=== PATIENT | female | born 1995 | race Caucasian/White ===

== ENCOUNTER 2016-05-23 11:55 | Emergency (ER) | payer BC ==
[~2016-05-23] VITALS: Ht 172.7 cm; Wt 63.1 kg
[2016-05-23 11:59] VITALS: TEMP 37.2; Ht 172.7 cm; Wt 63.1 kg
[2016-05-23] MEDS ORDERED: VENL75TA4 PO (12:22)
[2016-05-23] MEDS ORDERED: BCPILLS PO (12:22)
[2016-05-23] MEDS ORDERED: VENL75CA PO (12:23)
--- NOTE | 2016-05-23 12:23 | DIAGNOSTIC IMAGING REPORT ---
LEFT ANKLE 3 VIEWS CLINICAL HISTORY: Left ankle pain and swelling. FINDINGS: 3 views of the left ankle are obtained. No prior studies are available for comparison at the time of dictation. The skeletal structures are well mineralized. No fracture is seen. There is a joint effusion. Mild soft tissue edema is present, greatest overlying the lateral malleolus. IMPRESSION: Soft tissue swelling and joint effusion. No fracture is identified. Electronically signed by: Jose Villalobos M.D. 05/23/2016 12:21 PM Dictated Date/Time: 05/23/2016 12:20 PM
--- NOTE | 2016-05-23 13:13 | EMERGENCY ROOM VISIT NOTE ---
ED Visit Note First contact with patient: 12:29 CHIEF COMPLAINT: Ankle pain HISTORY OF PRESENT ILLNESS: This 21-year-old female patient presents to the emergency department ambulatory after sustaining an injury to the left ankle and foot with a twisting, inversion motion last night. The patient states that she was running home in high heels when she inverted her ankle and fell. The patient complains of pain along the outside of the ankle. The patient denies pain of the foot. The patient rates the pain as sharp and a 7/10. The patient is not able to bear weight on the foot. Constant pain, worse with movement, weight bearing, and the dependent position. No knee pain, the patient is able to move their toes. No numbness or weakness of the foot, no laceration. The patient has not had a previous fracture to this ankle. The patient has taken no medications for the pain. The patient denies any other injury. REVIEW OF SYSTEMS: A 6 system review of systems was completed with positives and pertinent negatives listed in the HPI. ALLERGIES: No known drug allergies MEDICATIONS: Control pills, Effexor PMH: No significant past medical history. SOCIAL HISTORY: The patient is a [employer] student and lives with roommates. Nonsmoker, occasional alcohol use. PHYSICAL EXAM: Vital Signs: Reviewed Nurse's notes, vital signs stable. GENERAL : This is a 21-year-old female, no acute distress, but appears in pain, well- developed, well-nourished. MENTAL STATUS: Alert, oriented to person place and time, and cooperative. MUSCULOSKELETAL: The left ankle is swollen and tender over the lateral malleolus, but the skin is intact and there is no ligamentous instability. There is no fifth metatarsal tenderness. There is no tenderness over the rest of the foot. There is no calf or tibia/fibular tenderness. There is no visual deformity. The foot and toes are warm and well-perfused. Dorsalis pedis pulse 2+. Sensation to pain and light touch is intact. Capillary refill less than 2 seconds. RADIOGRAPHIC FINDINGS: LEFT ANKLE 3 VIEWS CLINICAL HISTORY: Left ankle pain and swelling. FINDINGS: 3 views of the left ankle are obtained. No prior studies are available for comparison at the time of dictation. The skeletal structures are well mineralized. No fracture is seen. There is a joint effusion. Mild soft tissue edema is present, greatest overlying the lateral malleolus. IMPRESSION: Soft tissue swelling and joint effusion. No fracture is identified. EMERGENCY DEPARTMENT COURSE: I examined the patient. X-rays of the left ankle were reviewed by myself and read by radiology and reveal no acute fractures. Gel ankle splint was applied to the ankle under my direction and the position was satisfactory. Neurovascular status was rechecked and intact. The patient was instructed on the use of crutches. She was given information for orthopedic follow-up if needed. The patient was discharged home in good condition. DIAGNOSIS: Left ankle sprain Current/Historical Medications Scheduled Control Pills ( Control Pills), 1 TAB PO DAILY Venlafaxine Hcl (Effexor Xr), 1 CAP PO DAILY Allergies Coded Allergies: No Known Allergies (Unverified , 05/23/16) Vital Signs Date Time Temp Pulse Resp B/P Pulse Ox O2 Delivery O2 Flow Rate FiO2 05/23/16 13:37 87 18 139/88 99 05/23/16 11:59 37.2 98 18 143/94 96 Room Air Departure Information Dispostion Home / Self-Care Condition GOOD Referrals No Doctor, Assigned (PCP) Patient Instructions [facility] Additional Instructions You have been treated in the Emergency Department for an Ankle sprain. For pain control, you can use the following [id number] medicines (if >12 yo): - Regular strength (325mg/tab) Tylenol (acetaminophen) 2 tabs every 4-6 hours as needed. Do not exceed 12 tablets in a 24 hour period. Avoid taking more than 4 grams (4000 mg) of Tylenol per day. This includes any other sources of acetaminophen you may take on a regular basis. - Regular strength (200 mg/tab) Advil (ibuprofen) 1-2 tabs every 4-6 hours as needed. Do not exceed a dose of 3200 mg per day. If this is a recent injury (<24 hrs), ice can be applied to the area of pain for the first 3 days to help decrease pain and inflammation. Keep the ankle brace/splint in place and use the crutches you have been provided to keep ALL weight off of the ankle until weight bearing is tolerable. Follow-up with orthopedics if you have continued pain in 6-7 days. Return to the Emergency Department if your current symptoms worsen despite treatment course outlined above, or if you develop any of the following symptoms : intractable pain despite aforementioned treatment course or new onset of numbness or tingling of the foot.
[2016-05-23 13:37] VITALS: BP 139/88; PULSE 87; O2SAT 99
== END 2016-05-23 13:39 | disposition home or self-care (01) ==
LOC: C.EDB 11:58 → C.EDD 13:39
DX: S93.402A Sprain of unspecified ligament of left ankle, initial encounter (principal); X50.1XXA Overexertion from prolonged static or awkward postures, initial encounter

== ENCOUNTER 2016-07-18 21:48 | Emergency (ER) | payer BC ==
[~2016-07-18] VITALS: Ht 175.3 cm; Wt 65.5 kg
[~2016-07-18 21:48] MED LIST: BCPILLS PO; VENL75CA PO
[2016-07-18 21:59] VITALS: TEMP 37; Ht 175.3 cm; Wt 65.5 kg
[2016-07-18] MEDS ORDERED: BISM262C6 PO (22:15)
[2016-07-18] MEDS ORDERED: IBUP-1050 PO (22:15)
[2016-07-18] MEDS ORDERED: TRMCR515 TOP (22:15)
[2016-07-18] MEDS ORDERED: PRED10TA PO (22:15)
[2016-07-18] MEDS ORDERED: FAMOTIDINE 20MG/102 ML D5W IV STA (22:21)
[2016-07-18] MEDS ORDERED: DiphenhydrAMINE HCL 50 MG/ML VIAL IV STA (22:21)
[2016-07-18] MEDS ORDERED: METHYLPREDNISOLONE 125 MG VIAL IV STA (22:21)
[2016-07-18 23:58] VITALS: BP 128/73; PULSE 72; O2SAT 100
--- NOTE | 2016-07-19 04:54 | EMERGENCY ROOM VISIT NOTE ---
History First contact with patient: 22:11 Chief Complaint: RASH Stated Complaint: HIVES History of Present Illness The patient is a 21 year old female who presents to the Emergency Room with complaints of full body rash over the next 1-2 days. She does not have a history of new medication or new foods. She does not have recent travel history. No new detergents or other known contact with allergens. The patient is usually healthy and is not having chest pain or shortness of breath. No abdominal pain, nausea, or vomiting. The patient considers herself usually healthy and did go to a local urgent care clinic. They gave her a topical cream and dose of steroids. This has not significantly improved her symptoms tonight. She has not had similar symptoms in the past and rates her discomfort a 2/10. Review of Systems More than 10 systems were reviewed and otherwise negative with the exception of history of present illness. Past Medical/Surgical History No chronic medical disease Family History No pertinent family history Social History Smoking Status: Never Smoker Occupation Status: [employer] student Current/Historical Medications Scheduled Control Pills ( Control Pills), 1 TAB PO DAILY Bismuth Subsalicylate (Pepto-Bismol), 2 TABS PO DIRECTED Ibuprofen (Advil), 200-600 MG PO Q4H Prednisone (Prednisone), 0 PO UD Triamcinolone Acet (Triamcinolone Acetonide), 1 APPLN TOP Q6 Venlafaxine Hcl (Effexor Xr), 1 CAP PO DAILY Allergies Coded Allergies: No Known Allergies (Unverified , 07/18/16) Physical Exam Vital Signs Date Time Temp Pulse Resp B/P Pulse Ox O2 Delivery O2 Flow Rate FiO2 07/18/16 23:58 72 18 128/73 100 Room Air 07/18/16 21:59 37.0 101 16 144/88 96 Room Air Physical Exam VITALS: Vitals are noted on the nurse's note and reviewed by myself. Vital signs stable. GENERAL: Well-developed, well-nourished, white female, who is in no acute distress and resting comfortably. Patient is cooperative with the examination. HEAD: Normocephalic atraumatic. EARS: External ear normal. External auditory canals clear, tympanic membranes pearly max without erythema or effusion bilaterally. EYES: Pupils equal round and reactive to light and accommodation. Conjunctivae without injection, sclerae without icterus. Extraocular movements intact. NOSE: Patent, turbinates without inflammation or discharge. MOUTH: Mucous membranes moist. Tonsils are not enlarged. Pharynx without erythema, blood, or exudate. Uvula midline. Airway patent. NECK: Supple without nuchal rigidity. No lymphadenopathy. No thyromegaly. Cervical spine is nontender. HEART: Regular rate and rhythm without murmurs gallops or rubs. LUNGS: Clear to auscultation bilaterally without wheezes, rales or rhonchi. No retractions or accessory muscle use. ABDOMEN: Positive normal bowel sounds x 4. Soft, nontender, without masses or organomegaly. No guarding or rebound tenderness. SKIN: The skin was with diffuse urticarial rash primarily of the abdomen and back Medical Decision & Procedures Medications Administered Medications (Trade) Dose Ordered Sig/Maryanne Route Start Time Stop Time Status Last Admin Dose Admin Diphenhydramine HCl (Benadryl Inj) 25 mg NOW STAT IV 07/18/16 22:21 07/18/16 22:23 DC 07/18/16 23:19 25 MG Methylprednisolone Sodium Succinate (Solu-Medrol IV) 125 mg NOW STAT IV 07/18/16 22:21 07/18/16 22:23 DC 07/18/16 23:19 125 MG Famotidine (Pepcid 20mg/100 ml) 20 mg ONE STAT IV 07/18/16 22:21 07/18/16 22:23 DC 07/18/16 23:19 20 MG ED Course Physical exam and history were performed. Nursing notes and EMR were reviewed. Patient appears to have a full body rash consistent with allergic reaction. The patient does not appear to anaphylaxis. IV access was established and the patient was provided IV Solu-Medrol, IV Benadryl, and IV Pepcid. The patient was reevaluated multiple times with course of her stay. Over the course of several hours she had significant improvement of her rash and was no longer pruritic or with significant lesions. The patient and I had a discussion regarding further options of care. She does appear stable and ready for discharge home. She does have a prescription for prednisone from urgent care that she may continue. She should follow with her primary care physician or [facility] with any ongoing or persistent symptoms. She was otherwise invited back to the ER with any new, worsening, or concerning symptoms. The chart was completed utilizing [employer] Speech Voice Recognition Software. Grammatical errors, random word insertions, pronoun errors, and incomplete sentences are an occasional consequence of this system due to software limitations, ambient noise, and hardware issues. Any formal questions or concerns about the content, text, or information contained within the body of this dictation should be directly addressed to the provider for clarification. . Medical Decision Differential diagnosis: Etiologies such as allergic reaction, anaphylaxis, urticaria, Wallace-Gregroio syndrome, toxic epidermal necrolysis, erythema multiforme, cellulitis, as well as others were entertained. Impression Primary Impression: Allergic reaction Departure Information Referrals No Doctor, Assigned (PCP) Patient Instructions [facility]
== END 2016-07-19 00:25 | disposition home or self-care (01) ==
LOC: C.EDB 21:51 → C.EDA 07-19 00:25
DX: T78.40XA Allergy, unspecified, initial encounter (principal); X58.XXXA Exposure to other specified factors, initial encounter; Z79.3 Long term (current) use of hormonal contraceptives; Z79.899 Other long term (current) drug therapy